=== PATIENT | male | born 1975 | race Caucasian/White ===

== ENCOUNTER 2019-03-22 14:26 | Emergency (ER) | payer SELFPAY ==
[2019-03-22 15:08] LABS: Clarity Cloudy (Clear); Leukocyte Small (Negative); Nitrite Negative (Negative); Protein, Urine (Dipstick) 100 mg/dL (Neg-Trace)
[2019-03-22 15:09] LABS: Bilirubin Small (Negative); Blood, Urine Trace (Negative); Glucose, Urine (Dipstick) Negative (Negative)
[2019-03-22 15:13] LABS: Bacteria/HPF Rare-Few HPF (None Seen); Broad Cast None Seen LPF (None Seen); Calcium Oxalate Crystals None Seen HPF (None Seen); Cellular Cast None Seen LPF (None Seen); Crystals/HPF None Seen HPF (Negative); Epithelial Cast None Seen LPF (None Seen); Fatty Cast None Seen LPF (None Seen); Mucous/LPF None Seen LPF (<2+); Other Casts None Seen LPF (None Seen); Oval Fat Bodies/HPF None Seen HPF (None Seen); Red Blood Cell Cast None Seen LPF (None Seen); Renal Epithelial None Seen HPF (None Seen); Sperm/HPF None Seen HPF (None Seen); Squamous Epithelial None Seen HPF (0-3); Transitional Epithelial None Seen HPF (None Seen); Trichomonas/HPF None Seen HPF (None Seen); Triple Phosphate Crystal None Seen HPF (None Seen); Unclassified Crystals None Seen HPF (None Seen); WBC/HPF 21-50 HPF (0-3); Waxy Cast None Seen LPF (None Seen); White Blood Cell Cast None Seen LPF (None Seen); Yeast-Budding None Seen HPF (None Seen); Yeast-Hyphae None Seen HPF (None Seen)
[2019-03-22] MEDS ORDERED: HYDROcodone/Acetaminophen 10/325 mg Tablet ONE (15:24)
[2019-03-22] MEDS ORDERED: Sodium Chloride 0.9% 100 ML ONE (15:37)
[2019-03-22] MEDS ORDERED: cefTRIAXone\\ROCEPHIN 2 GM VIAL ONE (15:37)
[2019-03-22] MEDS ORDERED: Azithromycin 250 MG TAB ONE (15:37)
--- NOTE | 2019-03-22 15:56 | ULT ---
SCROTAL ULTRASOUND: Date: 03/22/19 Ultrasonography of the scrotum was performed for evaluation of pain. There has been a prior left orch iectomy. Remaining right testicle appears normal and measures 5.0 x 3.3 x 3.3 cm. Blood flow is present in it. No masses seen. The right epididymis, however, is enlarged and inhomogeneous. It measures 2.8 x 2.1 x 2.4 cm. It has increased blood flow in it and there is free fluid noted in the scrotum around it. IMPRESSION: Findings most consistent with epididymitis. POS: HOME
[2019-03-22] MEDS ORDERED: Lidocaine 1% PF 5 ML VIAL ONE (16:11)
[2019-03-22] MEDS ORDERED: cefTRIAXone\\ROCEPHIN 1 GM VIAL ONE (16:11)
== END 2019-03-22 16:24 | disposition home or self-care (01) ==
LOC: BURERS 14:26
DX: N45.1 Epididymitis (principal); F41.9 Anxiety disorder, unspecified; F17.210 Nicotine dependence, cigarettes, uncomplicated
CPT/HCPCS: 76870; 81003; 81015; 93976; 96372; J0696; J2001; J3490

== ENCOUNTER 2021-11-17 22:21 | Emergency (ER) | payer SELFPAY ==
[2021-11-17] MEDS ORDERED: Lidocaine 1% PF 5 ML VIAL ONE (22:52)
[2021-11-17] MEDS ORDERED: Cephalexin 250 MG CAP ONE (22:53)
== END 2021-11-17 23:02 | disposition home or self-care (01) ==
LOC: BURERS 22:21
DX: D17.0 Benign lipomatous neoplasm of skin and subcutaneous tissue of head, face and neck (principal); F17.210 Nicotine dependence, cigarettes, uncomplicated
CPT/HCPCS: 10060; 99406

== ENCOUNTER 2021-12-02 21:44 | Emergency (ER) | payer SELFPAY ==
[2021-12-02] MEDS ORDERED: Aspirin 325 MG TAB ONE (22:29)
[2021-12-02] MEDS ORDERED: Aspirin Chewable 81 MG TAB ONE (22:30)
[2021-12-02 22:47] LABS: #Basophils 0.1 thou/uL (0.0-0.2); #Eosinphils 0.2 thou/uL (0.0-0.7); #Monocytes 0.5 thou/uL (0.11-0.59); %Basophils 1.3 % (0.0-1.0); %Eosinophils 2.6 % (0.0-10.0); %Lymphocytes 25.8 % (21.0-51.0); %Monocytes 6.6 % (0.0-10.0); %Neutrophils 63.7 % (42.0-75.0); Hemoglobin 14.9 g/dL (14.0-18.0); Mean Corpuscular HGB CONC 32.8 g/dL (32.0-36.0); Mean Corpuscular Hemoglobin 31.5 pg (27.0-31.0); Platelet Count 315 thou/uL (130-400); RBC Distribution Width 12.3 % (11.5-14.5); Red Blood Cell (RBC) Count 4.73 mill/uL (4.70-6.10); White Blood Cell (WBC) Count 7.9 thou/uL (4.8-10.8)
[2021-12-02 23:20] LABS: ALT (SGPT) 22 U/L (8-55); AST (SGOT) 18 U/L (5-34); Albumin 4.2 g/dL (3.5-5.0); Alkaline Phosphatase 71 U/L (40-110); Anion Gap 18 mmol/L (10-20); BUN (Urea Nitrogen) 18 mg/dL (8.9-20.6); Bilirubin, Total 0.7 mg/dL (0.2-1.2); Calc. Creatinine Clearance 0 mL/min (70-130); Calcium 9.3 mg/dL (7.8-10.44); Carbon Dioxide 20 mmol/L (22-29); Chloride 107 mmol/L (98-107); Globulin 2.5 g/dL (2.4-3.5); Glucose 95 mg/dL (70-105); Potassium 3.9 mmol/L (3.5-5.1); Protein, Total 6.7 g/dL (6.0-8.3); Sodium 141 mmol/L (136-145)
[2021-12-03 17:33] LABS: SARS-CoV-2 PCR by NAA Not Detected (NotDetected)
== END 2021-12-03 00:12 | disposition home or self-care (01) ==
LOC: BURERS 21:44
DX: R07.89 Other chest pain (principal); R42 Dizziness and giddiness; Z20.822 Contact with and (suspected) exposure to COVID-19; F17.210 Nicotine dependence, cigarettes, uncomplicated
CPT/HCPCS: 71046; 80053; 83880; 84443; 84484; 85025; 87804; 93005; U0003; U0005